=== PATIENT | female | born 1970 | race Caucasian/White ===

== ENCOUNTER 2018-11-27 00:20 | Emergency (ER) | payer BC ==
[2018-11-27 00:28] VITALS: BP 98/57
[2018-11-27] MEDS ORDERED: MVI, Adult with Vitamin K 10 ML, Folic Acid 1 MG, Thiamine 100 MG in Lactated Ringers 1... IV ONE ×4 (00:44)
[2018-11-27 01:17] LABS: ANION GAP 13.4; CHLORIDE,CL 110 mmol/L (101-111); SODIUM,NA 144 mmol/L (135-145)
[2018-11-27 01:18] LABS: ACETAMINOPHEN < 10 ug/mL
[2018-11-27] MEDS ORDERED: Sodium Chloride 0.9% 1,000 ML IV SCH (02:15)
--- NOTE | 2018-11-27 03:04 | EDM.PDOC ---
ED HPI GENERAL MEDICAL PROBLEM - General Chief Complaint: Behavioral/Psych Stated Complaint: AMBULANCE Time Seen by Provider: 11/27/18 00:33 Source of Information: Reports: Patient, EMS, Family, RN History Limitations: Reports: Altered Mental Status, Intoxication - History of Present Illness INITIAL COMMENTS - FREE TEXT/NARRATIVE: ED via EMS with report of OD on ETOH and clonazepam , daughter reported 8 1 mg tablets. On arrival patient reports only 6 1/2 tablets. Spouse estimates 12 beers tonight, usual 12 per spouse patient reports 6-7 daily. No withdrawal hx. Patient stated to daughter and EMS she wanted to . Now stating she was just mad. Daughter reports when drinking makes frequent comments of wanting to . Patient lethargic on arrival arouse to voice speech slurred. No reports of injury. No prior suicide attempts. Daughter reports recent OD of friend - Related Data Allergies Allergy/AdvReac Type Severity Reaction Status Date / Time No Known Allergies Allergy Verified 11/27/18 00:25 Home Meds: Home Meds ClonazePAM [KlonoPIN] 0.5 mg PO BID 08/17/14 [History] DULoxetine [Cymbalta] 20 mg PO DAILY 08/17/14 [History] Glucosamine/D3/Boswellia Radha [Osteo Bi-Flex Caplet] 1 each PO DAILY 08/17/14 [ History] Social & Family History - Family History Family Medical History: Noncontributory - Tobacco Use Smoking Status *Q: Unknown Ever Smoked - Alcohol Use Date of Last Drink: 11/27/18 ED ROS GENERAL - Review of Systems Review Of Systems: ROS reveals no pertinent complaints other than HPI. - Physical Exam Exam: See Below Exam Limited By: No Limitations General Appearance: Lethargic Eye Exam: Bilateral Eye: EOMI, PERRL (5mm) Ears: Normal External Exam, Hearing Grossly Normal Nose: Normal Inspection Throat/Mouth: Normal Inspection Head Exam: Atraumatic, Normocephalic Neck: Normal Inspection, Full Range of Motion Respiratory/Chest: No Respiratory Distress, Decreased Breath Sounds, Other (On oxygen on arrival. ) Cardiovascular: Normal Peripheral Pulses, Regular Rate, Rhythm GI/Abdominal: Normal Bowel Sounds, Soft (round), Non-Tender. No: Tender Extremities: Normal Inspection Psychiatric: Flat Affect Skin Exam: Warm, Dry, Intact, Normal Color EKG INTERPRETATION Rhythm: NSR Course - Vital Signs Last Recorded V/S: Last Vital Signs Temp 98.6 F 11/27/18 00:26 Pulse 87 11/27/18 00:26 Resp 28 H 11/27/18 00:26 BP 98/57 L 11/27/18 00:26 Pulse Ox 91 L 11/27/18 00:26 - Orders/Labs/Meds Orders: Active Orders 24 hr Category Date Time Status EKG Documentation Completion [RC] URGENT Care 11/27/18 00:32 Active Sodium Chloride 0.9% [Normal Saline] 1,000 ml Med 11/27/18 02:15 Active IV ASDIRECTED Medication Orders Sodium Chloride (Normal Saline) 1,000 mls @ 250 mls/hr IV ASDIRECTED ELIZ Last Admin: 11/27/18 02:12 Dose: 250 mls/hr Labs: Laboratory Tests 11/27/18 11/27/18 11/27/18 Range/Units 00:50 00:50 01:28 WBC 11.1 H (5.0-10.0) 10^3/uL RBC 4.29 (4.2-5.4) 10^6/uL Hgb 13.7 D (12.0-16.0) g/dL Hct 40.7 (37.0-47.0) % MCV 94.9 (80-100) fL MCH 31.9 (27.0-34.0) pg MCHC 33.7 (33.0-35.0) g/dL Plt Count 240 (150-450) 10^3/uL Neut % (Auto) 64.2 (42.2-75.2) % Lymph % (Auto) 26.3 (20.5-50.1) % [place] % (Auto) 7.9 (2-8) % Eos % (Auto) 1.2 (1.0-3.0) % Baso % (Auto) 0.4 (0.0-1.0) % Sodium 144 (135-145) mmol/L Potassium 3.4 L (3.6-5.0) mmol/L Chloride 110 (101-111) mmol/L Carbon Dioxide 24.0 (21.0-31.0) mmol/L Anion Gap 13.4 BUN 12 (7-18) mg/dL Creatinine 0.6 (0.6-1.3) mg/dL Est Cr Clr Drug Dosing 88.72 mL/min Estimated GFR (MDRD) > 60 BUN/Creatinine Ratio 20.00 Glucose 96 (74-105) mg/dL Calcium 8.3 L (8.4-10.2) mg/dl Total Bilirubin 0.4 (0.2-1.0) mg/dL AST 21 (10-42) IU/L ALT 13 (10-60) IU/L Alkaline Phosphatase 79 (42-121) IU/L Total Protein 6.5 L (6.7-8.2) g/dl Albumin 3.9 (3.2-5.5) g/dl Globulin 2.6 Albumin/Globulin Ratio 1.50 Amylase 57 (28-100) U/L Lipase 38 (22-51) U/L Urine Color Yellow (YELLOW) Urine Appearance Clear (CLEAR) Urine pH 6.0 (5.0-9.0) Ur Specific [place] <= 1.005 (1.005-1.030) Urine Protein Negative (NEGATIVE) Urine Glucose (UA) Negative (NEGATIVE) Urine Ketones Negative (NEGATIVE) Urine Occult Blood Trace-intact H (NEGATIVE) Urine Nitrite Negative (NEGATIVE) Urine Bilirubin Negative (NEGATIVE) Urine Urobilinogen 0.2 (0.2-1.0) mg/dL Ur Leukocyte Esterase Negative (NEGATIVE) Urine RBC Not seen /HPF Urine WBC Not seen (0-5/HPF) /HPF Ur Epithelial Cells Rare (NOT SEEN) /HPF Urine Bacteria Rare (0-FEW/HPF) /HPF Salicylates < 4 mg/dL Urine Opiates Screen (NEGATIVE) Ur Oxycodone Screen (NEGATIVE) Urine Methadone Screen (NEGATIVE) Acetaminophen < 10 ug/mL Ur Barbiturates Screen (NEGATIVE) U Tricyclic Antidepress (NEGATIVE) Ur Phencyclidine Scrn (NEGATIVE) Ur Amphetamine Screen (NEGATIVE) U Methamphetamines Scrn (NEGATIVE) Urine MDMA Screen (NEGATIVE) U Benzodiazepines Scrn (NEGATIVE) Urine Cocaine Screen (NEGATIVE) U Marijuana (THC) Screen (NEGATIVE) Ethyl Alcohol 188 mg/dL 11/27/18 Range/Units 01:28 WBC (5.0-10.0) 10^3/uL RBC (4.2-5.4) 10^6/uL Hgb (12.0-16.0) g/dL Hct (37.0-47.0) % MCV (80-100) fL MCH (27.0-34.0) pg MCHC (33.0-35.0) g/dL Plt Count (150-450) 10^3/uL Neut % (Auto) (42.2-75.2) % Lymph % (Auto) (20.5-50.1) % [place] % (Auto) (2-8) % Eos % (Auto) (1.0-3.0) % Baso % (Auto) (0.0-1.0) % Sodium (135-145) mmol/L Potassium (3.6-5.0) mmol/L Chloride (101-111) mmol/L Carbon Dioxide (21.0-31.0) mmol/L Anion Gap BUN (7-18) mg/dL Creatinine (0.6-1.3) mg/dL Est Cr Clr Drug Dosing mL/min Estimated GFR (MDRD) BUN/Creatinine Ratio Glucose (74-105) mg/dL Calcium (8.4-10.2) mg/dl Total Bilirubin (0.2-1.0) mg/dL AST (10-42) IU/L ALT (10-60) IU/L Alkaline Phosphatase (42-121) IU/L Total Protein (6.7-8.2) g/dl Albumin (3.2-5.5) g/dl Globulin Albumin/Globulin Ratio Amylase (28-100) U/L Lipase (22-51) U/L Urine Color (YELLOW) Urine Appearance (CLEAR) Urine pH (5.0-9.0) Ur Specific [place] (1.005-1.030) Urine Protein (NEGATIVE) Urine Glucose (UA) (NEGATIVE) Urine Ketones (NEGATIVE) Urine Occult Blood (NEGATIVE) Urine Nitrite (NEGATIVE) Urine Bilirubin (NEGATIVE) Urine Urobilinogen (0.2-1.0) mg/dL Ur Leukocyte Esterase (NEGATIVE) Urine RBC /HPF Urine WBC (0-5/HPF) /HPF Ur Epithelial Cells (NOT SEEN) /HPF Urine Bacteria (0-FEW/HPF) /HPF Salicylates mg/dL Urine Opiates Screen Negative (NEGATIVE) Ur Oxycodone Screen Negative (NEGATIVE) Urine Methadone Screen Negative (NEGATIVE) Acetaminophen ug/mL Ur Barbiturates Screen Negative (NEGATIVE) U Tricyclic Antidepress Negative (NEGATIVE) Ur Phencyclidine Scrn Negative (NEGATIVE) Ur Amphetamine Screen Negative (NEGATIVE) U Methamphetamines Scrn Negative (NEGATIVE) Urine MDMA Screen Negative (NEGATIVE) U Benzodiazepines Scrn Negative (NEGATIVE) Urine Cocaine Screen Negative (NEGATIVE) U Marijuana (THC) Screen Negative (NEGATIVE) Ethyl Alcohol mg/dL Meds: Medications Generic Name Dose Route Start Last Admin Trade Name Freq PRN Reason Stop Dose Admin Sodium Chloride 1,000 mls @ 250 mls/hr 11/27/18 02:15 11/27/18 02:12 Normal Saline IV 250 mls/hr ASDIRECTED ELIZ Administration Discontinued Medications Generic Name Dose Route Start Last Admin Trade Name Freq PRN Reason Stop Dose Admin Multivitamins/Minerals 10 ml/ 1,011.2 mls @ 999 mls/hr 11/27/18 00:44 00:53 Folic Acid 1 mg/ Thiamine HCl IV 11/27/18 01:44 999 mls/hr 100 mg/ Lactated Ringer's ONETIME ONE Administration - Re-Assessments/Exams Free Text/Narrative Re-Assessment/Exam: 11/27/18 03:18 Lethargic at times requires tactile stimulation BP 100's , Decrease 80's sleeping and left side. More alert at time of transfer, VS improved, room air with sats mid 90's. Up to BSC x [address] Tyler, aceepting patient in transfer. Tx via [facility]. Departure - Departure Time of Disposition: 03:21 Disposition: DC/Tfer to Acute Hospital 02 Condition: Good Clinical Impression: Alcohol abuse, Drug abuse Suicide gesture Qualifiers: Encounter type: initial encounter Qualified Code(s): X83.8XXA - Intentional self-harm by other specified means, initial encounter - Discharge Information *PRESCRIPTION DRUG MONITORING PROGRAM REVIEWED*: Yes *COPY OF PRESCRIPTION DRUG MONITORING REPORT IN PATIENT ANDREW: No Forms: ED Department Discharge - My Orders Last 24 Hours: My Active Orders 11/27/18 00:32 EKG Documentation Completion [RC] URGENT 11/27/18 02:15 Sodium Chloride 0.9% [Normal Saline] 1,000 ml IV ASDIRECTED - Assessment/Plan Last 24 Hours: My Active Orders 11/27/18 00:32 EKG Documentation Completion [RC] URGENT 11/27/18 02:15 Sodium Chloride 0.9% [Normal Saline] 1,000 ml IV ASDIRECTED
== END 2018-11-27 03:30 ==
LOC: DL.ED 00:20
DX: T42.4X2A Poisoning by benzodiazepines, intentional self-harm, initial encounter (principal); F10.10 Alcohol abuse, uncomplicated; F19.10 Other psychoactive substance abuse, uncomplicated; R53.83 Other fatigue; Z79.899 Other long term (current) drug therapy; Y90.6 Blood alcohol level of 120-199 mg/100 ml
CPT/HCPCS: 36415; 80053; 80305; 80320; 80329; 81001; 82150; 83690; 85025; 93005; 94762; 96365; 96367; 99284; J3411; J7030; J7120; G0480; J3490

== ENCOUNTER 2021-02-10 03:29 | Emergency (ER) | payer BC ==
[2021-02-10] MEDS ORDERED: Sodium Chloride 0.9% 10 ML Syringe FLUSH PRN (03:37)
[2021-02-10] MEDS ORDERED: Sodium Chloride 0.9% 1,000 ML IV ONE ×2 (04:13→08:05)
[2021-02-10] MEDS ORDERED: Ondansetron 4 MG/2 ML SDV IVPUSH ONE (04:13)
--- NOTE | 2021-02-10 04:13 | EDM.PDOC ---
<Magan Guthrie Hans - Last Filed: 02/10/21 06:02> ED HPI GENERAL MEDICAL PROBLEM - General Chief Complaint: Chest Pain Stated Complaint: PAIN IN NECK GOING TO LOWER BACK, MIGRAINE Time Seen by Provider: 02/10/21 04:08 Source of Information: Reports: Patient History Limitations: Reports: No Limitations - History of Present Illness INITIAL COMMENTS - FREE TEXT/NARRATIVE: 50 y/o F c/o GARCIA, neck pn, cough, migraine, fever, weakness, cp, nausea, muscle aches since Thursday. Pt has been taking tylenol and meloxicam for fever and pain control. Last tylenol at 7 pm and meloxicam at 230 this morning. The cp is sharp R lower chest worse with coughing. Pt is a heavy smoker and has COPD for which she uses an inhaler. Denies db, abd pn, back pn, diff voiding, vomiting, diarrhea. Right Headache Pain Score (Numeric/FACES): 9 - Related Data Allergies Allergy/AdvReac Type Severity Reaction Status Date / Time codeine AdvReac Nausea and Verified 02/10/21 03:55 Vomiting Home Meds: Home Meds ClonazePAM [KlonoPIN] 0.5 mg PO BID PRN 08/17/14 [History] DULoxetine [Cymbalta] 60 mg PO DAILY 08/17/14 [History] Glucosamine/D3/Boswellia Radha [Osteo Bi-Flex Caplet] 2 each PO DAILY 08/17/14 [History] Magnesium 02/10/21 [History] Meloxicam 15 mg PO DAILY PRN 02/10/21 [History] Potassium Gluconate [Potassium] 99 mg PO 02/10/21 [History] Social & Family History - Family History Family Medical History: No Pertinent Family History - Tobacco Use Tobacco Use Status *Q: Current Every Day Tobacco User Years of Tobacco use: 35 Packs/Tins Daily: 1 - Recreational Drug Use Recreational Drug Use: No ED ROS GENERAL - Review of Systems Review Of Systems: Comprehensive ROS is negative, except as noted in HPI. ED EXAM, GENERAL - Physical Exam Exam: See Below Exam Limited By: No Limitations General Appearance: Alert, Mild Distress Ears: Normal External Exam, Normal Canal, Hearing Grossly Normal, Normal TMs Nose: Normal Inspection, Normal Mucosa Throat/Mouth: Normal Lips, Normal Teeth, No Airway Compromise, Other (tongue dry and furrowed.) Head: Atraumatic, Normocephalic Neck: Normal Inspection, Supple, Non-Tender, Full Range of Motion Respiratory/Chest: No Respiratory Distress, No Accessory Muscle Use, Chest Non- Tender, Other (dimished lowers) Cardiovascular: Normal Peripheral Pulses, Tachycardia GI/Abdominal: Soft, Non-Tender (Female) Exam: Deferred Back Exam: Normal Inspection, Full Range of Motion Extremities: Normal Inspection, Normal Range of Motion, Non-Tender, Normal Capillary Refill, No Pedal Edema Neurological: Alert, Oriented, CN II-XII Intact, Normal Cognition, Normal Gait, Normal Reflexes, No Motor/Sensory Deficits Psychiatric: Normal Affect, Normal Mood Skin Exam: Dry, Intact, Other (hot to the touch) #1 Interpretation EKG Date: 02/10/21 Time: 03:41 Rhythm: Other (sinus) [place]: Normal P-Wave: Present QRS: Normal ST-T: Depressed QT: Normal EKG Interpretation Comments: sinus tach, rate 115, normal axis, diffuse T wave abnormalities inferior lateral leads, no st elevation. Course - Vital Signs Text/Narrative:: Given the pts presentation, tachycardia, tachypnea, hypoxia with exertion I ordered a CT PE protocol. The pt has marketly increased liver enzymes and denies alcohol use or abuse. Knowing this I determined it appropriate to CT her abd pelvis to look for a discernable cause to her liver enzymes. Departure - Departure Disposition: DC/Tfer to [facility] 02 Clinical Impression: Hypoxia RML pneumonia Qualifiers: Pneumonia type: due to unspecified organism Qualified Code(s): J18.9 - Pneumonia, unspecified organism Sepsis Qualifiers: Sepsis type: sepsis due to unspecified organism Sepsis acute organ dysfunction status: without acute organ dysfunction Qualified Code(s): A41.9 - Sepsis, unspecified organism COPD (chronic obstructive pulmonary disease) Qualifiers: COPD type: unspecified COPD Qualified Code(s): J44.9 - Chronic obstructive pulmonary disease, unspecified Forms: ED Department Discharge, Interfacility Transfer [facility] Sepsis Event Note (ED) - Evaluation Sepsis Screening Result: Possible Sepsis Risk <Marilee Padilla - Last Filed: 02/10/21 08:38> Past Medical History Respiratory History: Reports: COPD Psychiatric History: Reports: Anxiety, Depression - Past Surgical History HEENT Surgical History: Reports: Tonsillectomy Female Surgical History: Reports: Section, Hysterectomy, Oophorectomy Course - Vital Signs Last Recorded V/S: Last Vital Signs Temp 100.3 F 02/10/21 05:25 Pulse 102 H 02/10/21 06:30 Resp 22 H 02/10/21 06:30 BP 102/62 02/10/21 06:30 Pulse Ox 91 L 02/10/21 06:30 - Orders/Labs/Meds Orders: Active Orders 24 hr Category Date Time Status Peripheral IV Care [RC] . DIRECTED Care 02/10/21 03:38 Active CULTURE BLOOD [BC] Stat Lab 02/10/21 03:55 Received CULTURE BLOOD [BC] Stat Lab 02/10/21 04:25 Received Sodium Chloride 0.9% [Normal Saline] 1,000 ml Med 02/10/21 08:05 Ordered IV .BOLUS Sodium Chloride 0.9% [Normal Saline] 500 ml Med 02/10/21 05:00 Active IV .BOLUS Sodium Chloride 0.9% [Saline Flush] Med 02/10/21 03:37 Active 10 ml FLUSH ASDIRECTED PRN Blood Culture x2 Reflex Set [OM.PC] Stat Oth 02/10/21 03:38 Ordered Peripheral IV Insertion Adult [OM.PC] Routine Oth 02/10/21 03:38 Ordered Medication Orders Sodium Chloride (Normal Saline) 500 mls @ 999 mls/hr IV .BOLUS ELIZ Last Admin: 02/10/21 05:02 Dose: 999 mls/hr Documented by: LEATHA Sodium Chloride (Normal Saline) 1,000 mls @ 150 mls/hr IV .BOLUS ONE Stop: 02/10/21 14:44 Last Admin: 02/10/21 08:12 Dose: 150 mls/hr Documented by: Sodium Chloride (Sodium Chloride 0.9% 10 Ml Syringe) 10 ml FLUSH ASDIRECTED PRN PRN Reason: Keep Vein Open Last Admin: 02/10/21 04:26 Dose: 10 ml Documented by: LEATHA Labs: Laboratory Tests 02/10/21 02/10/21 02/10/21 Range/Units 03:55 03:55 03:55 WBC 20.3 H (5.0-10.0) 10^3/uL RBC 4.49 (4.2-5.4) 10^6/uL Hgb 14.1 (12.0-16.0) g/dL Hct 41.5 (37.0-47.0) % MCV 92.4 (80-100) fL MCH 31.4 (27.0-34.0) pg MCHC 34.0 (33.0-35.0) g/dL Plt Count 173 (150-450) 10^3/uL Neut % (Auto) 83.0 H (42.2-75.2) % Lymph % (Auto) 6.5 L (20.5-50.1) % [place] % (Auto) 10.4 H (2-8) % Eos % (Auto) 0.0 L (1.0-3.0) % Baso % (Auto) 0.1 (0.0-1.0) % Sodium 133 L (136-145) mmol/L Potassium 3.7 (3.5-5.1) mmol/L Chloride 101 (98-107) mmol/L Carbon Dioxide 23 (21-32) mmol/L Anion Gap 12.7 (7-13) mEq/L BUN 15 (7-18) mg/dL Creatinine 0.76 (0.55-1.02) mg/dL Est Cr Clr Drug Dosing 71.12 mL/min Estimated GFR (MDRD) > 60 BUN/Creatinine Ratio 19.7 (No establ ref range) Glucose 128 H (70-99) mg/dL Lactic Acid 0.6 (0.4-2.0) mmol/L Calcium 8.5 (8.5-10.1) mg/dL Magnesium 1.9 (1.8-2.4) mg/dL Total Bilirubin 0.6 (0.2-1.0) mg/dL AST 254 H (15-37) U/L ALT 243 H (14-59) U/L Alkaline Phosphatase 119 H (46-116) U/L Troponin I High Sens < 4 (<=51) pg/mL C-Reactive Protein 18.2 H (0.0-0.9) mg/dL Total Protein 7.0 (6.4-8.2) g/dL Albumin 3.3 L (3.4-5.0) g/dL Globulin 3.7 Albumin/Globulin Ratio 0.89 Amylase 40 (25-115) U/L Lipase 204 (73-393) U/L TSH, Ultra Sensitive 1.28 (0.36-3.74) uIU/mL Urine Color (YELLOW) Urine Appearance (CLEAR) Urine pH (5.0-9.0) Ur Specific [place] (1.005-1.030) Urine Protein (NEGATIVE) Urine Glucose (UA) (NEGATIVE) Urine Ketones (NEGATIVE) Urine Occult Blood (NEGATIVE) Urine Nitrite (NEGATIVE) Urine Bilirubin (NEGATIVE) Urine Urobilinogen (0.2-1.0) mg/dL Ur Leukocyte Esterase (NEGATIVE) Urine RBC (0-5) /HPF Urine WBC (0-5/HPF) /HPF Ur Epithelial Cells (NOT SEEN) /HPF Urine Bacteria (0-FEW/HPF) /HPF Fine Granular Casts (NOT SEEN) /LPF Urine HCG, Qual Urine Opiates Screen (NEGATIVE) Ur Oxycodone Screen (NEGATIVE) Urine Methadone Screen (NEGATIVE) Ur Barbiturates Screen (NEGATIVE) U Tricyclic Antidepress (NEGATIVE) Ur Phencyclidine Scrn (NEGATIVE) Ur Amphetamine Screen (NEGATIVE) U Methamphetamines Scrn (NEGATIVE) Urine MDMA Screen (NEGATIVE) U Benzodiazepines Scrn (NEGATIVE) Urine Cocaine Screen (NEGATIVE) U Marijuana (THC) Screen (NEGATIVE) Ethyl Alcohol < 3 (0) mg/dL Influenza Type A RNA (NEGATIVE) Influenza Type B RNA (NEGATIVE) SARS-CoV-2 RNA (ELLA) (NEGATIVE) 02/10/21 02/10/21 02/10/21 Range/Units 03:59 04:35 04:35 WBC (5.0-10.0) 10^3/uL RBC (4.2-5.4) 10^6/uL Hgb (12.0-16.0) g/dL Hct (37.0-47.0) % MCV (80-100) fL MCH (27.0-34.0) pg MCHC (33.0-35.0) g/dL Plt Count (150-450) 10^3/uL Neut % (Auto) (42.2-75.2) % Lymph % (Auto) (20.5-50.1) % [place] % (Auto) (2-8) % Eos % (Auto) (1.0-3.0) % Baso % (Auto) (0.0-1.0) % Sodium (136-145) mmol/L Potassium (3.5-5.1) mmol/L Chloride (98-107) mmol/L Carbon Dioxide (21-32) mmol/L Anion Gap (7-13) mEq/L BUN (7-18) mg/dL Creatinine (0.55-1.02) mg/dL Est Cr Clr Drug Dosing mL/min Estimated GFR (MDRD) BUN/Creatinine Ratio (No establ ref range) Glucose (70-99) mg/dL Lactic Acid (0.4-2.0) mmol/L Calcium (8.5-10.1) mg/dL Magnesium (1.8-2.4) mg/dL Total Bilirubin (0.2-1.0) mg/dL AST (15-37) U/L ALT (14-59) U/L Alkaline Phosphatase (46-116) U/L Troponin I High Sens (<=51) pg/mL C-Reactive Protein (0.0-0.9) mg/dL Total Protein (6.4-8.2) g/dL Albumin (3.4-5.0) g/dL Globulin Albumin/Globulin Ratio Amylase (25-115) U/L Lipase (73-393) U/L TSH, Ultra Sensitive (0.36-3.74) uIU/mL Urine Color Yellow (YELLOW) Urine Appearance Slightly cloudy (CLEAR) Urine pH 7.0 (5.0-9.0) Ur Specific [place] 1.025 (1.005-1.030) Urine Protein 100 H (NEGATIVE) Urine Glucose (UA) Negative (NEGATIVE) Urine Ketones 40 H (NEGATIVE) Urine Occult Blood Trace-intact H (NEGATIVE) Urine Nitrite Negative (NEGATIVE) Urine Bilirubin Negative (NEGATIVE) Urine Urobilinogen 0.2 (0.2-1.0) mg/dL Ur Leukocyte Esterase Negative (NEGATIVE) Urine RBC 0-5 (0-5) /HPF Urine WBC 5-10 H (0-5/HPF) /HPF Ur Epithelial Cells Many H (NOT SEEN) /HPF Urine Bacteria Many H (0-FEW/HPF) /HPF Fine Granular Casts Few H (NOT SEEN) /LPF Urine HCG, Qual Negative Urine Opiates Screen (NEGATIVE) Ur Oxycodone Screen (NEGATIVE) Urine Methadone Screen (NEGATIVE) Ur Barbiturates Screen (NEGATIVE) U Tricyclic Antidepress (NEGATIVE) Ur Phencyclidine Scrn (NEGATIVE) Ur Amphetamine Screen (NEGATIVE) U Methamphetamines Scrn (NEGATIVE) Urine MDMA Screen (NEGATIVE) U Benzodiazepines Scrn (NEGATIVE) Urine Cocaine Screen (NEGATIVE) U Marijuana (THC) Screen (NEGATIVE) Ethyl Alcohol (0) mg/dL Influenza Type A RNA Negative (NEGATIVE) Influenza Type B RNA Negative (NEGATIVE) SARS-CoV-2 RNA (ELLA) Negative (NEGATIVE) 02/10/21 Range/Units 04:35 WBC (5.0-10.0) 10^3/uL RBC (4.2-5.4) 10^6/uL Hgb (12.0-16.0) g/dL Hct (37.0-47.0) % MCV (80-100) fL MCH (27.0-34.0) pg MCHC (33.0-35.0) g/dL Plt Count (150-450) 10^3/uL Neut % (Auto) (42.2-75.2) % Lymph % (Auto) (20.5-50.1) % [place] % (Auto) (2-8) % Eos % (Auto) (1.0-3.0) % Baso % (Auto) (0.0-1.0) % Sodium (136-145) mmol/L Potassium (3.5-5.1) mmol/L Chloride (98-107) mmol/L Carbon Dioxide (21-32) mmol/L Anion Gap (7-13) mEq/L BUN (7-18) mg/dL Creatinine (0.55-1.02) mg/dL Est Cr Clr Drug Dosing mL/min Estimated GFR (MDRD) BUN/Creatinine Ratio (No establ ref range) Glucose (70-99) mg/dL Lactic Acid (0.4-2.0) mmol/L Calcium (8.5-10.1) mg/dL Magnesium (1.8-2.4) mg/dL Total Bilirubin (0.2-1.0) mg/dL AST (15-37) U/L ALT (14-59) U/L Alkaline Phosphatase (46-116) U/L Troponin I High Sens (<=51) pg/mL C-Reactive Protein (0.0-0.9) mg/dL Total Protein (6.4-8.2) g/dL Albumin (3.4-5.0) g/dL Globulin Albumin/Globulin Ratio Amylase (25-115) U/L Lipase (73-393) U/L TSH, Ultra Sensitive (0.36-3.74) uIU/mL Urine Color (YELLOW) Urine Appearance (CLEAR) Urine pH (5.0-9.0) Ur Specific [place] (1.005-1.030) Urine Protein (NEGATIVE) Urine Glucose (UA) (NEGATIVE) Urine Ketones (NEGATIVE) Urine Occult Blood (NEGATIVE) Urine Nitrite (NEGATIVE) Urine Bilirubin (NEGATIVE) Urine Urobilinogen (0.2-1.0) mg/dL Ur Leukocyte Esterase (NEGATIVE) Urine RBC (0-5) /HPF Urine WBC (0-5/HPF) /HPF Ur Epithelial Cells (NOT SEEN) /HPF Urine Bacteria (0-FEW/HPF) /HPF Fine Granular Casts (NOT SEEN) /LPF Urine HCG, Qual Urine Opiates Screen Negative (NEGATIVE) Ur Oxycodone Screen Negative (NEGATIVE) Urine Methadone Screen Negative (NEGATIVE) Ur Barbiturates Screen Negative (NEGATIVE) U Tricyclic Antidepress Positive H (NEGATIVE) Ur Phencyclidine Scrn Negative (NEGATIVE) Ur Amphetamine Screen Negative (NEGATIVE) U Methamphetamines Scrn Negative (NEGATIVE) Urine MDMA Screen Negative (NEGATIVE) U Benzodiazepines Scrn Negative (NEGATIVE) Urine Cocaine Screen Negative (NEGATIVE) U Marijuana (THC) Screen Negative (NEGATIVE) Ethyl Alcohol (0) mg/dL Influenza Type A RNA (NEGATIVE) Influenza Type B RNA (NEGATIVE) SARS-CoV-2 RNA (ELLA) (NEGATIVE) Meds: Medications Generic Name Dose Route Start Last Admin Trade Name Freq PRN Reason Stop Dose Admin Sodium Chloride 500 mls @ 999 mls/hr 02/10/21 05:00 02/10/21 05:02 Normal Saline IV 999 mls/hr .BOLUS ELIZ Administration Sodium Chloride 1,000 mls @ 150 mls/hr 02/10/21 08:05 02/10/21 08:12 Normal Saline IV 02/10/21 14:44 150 mls/hr .BOLUS ONE Administration Sodium Chloride 10 ml 02/10/21 03:37 02/10/21 04:26 Sodium Chloride 0.9% 10 Ml Syringe FLUSH 10 ml ASDIRECTED PRN Administration Keep Vein Open Discontinued Medications Generic Name Dose Route Start Last Admin Trade Name Freq PRN Reason Stop Dose Admin Acetaminophen 1,000 mg 02/10/21 04:15 02/10/21 04:29 Acetaminophen 500 Mg Tab PO 02/10/21 04:16 1,000 mg ONETIME ONE Administration Hydromorphone HCl 0.5 mg 02/10/21 05:30 02/10/21 05:36 Hydromorphone 0.5 Mg/0.5 Ml Syringe IVPUSH 02/10/21 05:31 0.5 mg ONETIME ONE Administration Sodium Chloride 1,000 mls @ 999 mls/hr 02/10/21 04:13 02/10/21 04:32 Normal Saline IV 02/10/21 05:13 999 mls/hr .BOLUS ONE Administration Levofloxacin/Dextrose 750 mg/ 150 mls @ 100 mls/hr 02/10/21 06:01 02/10/21 07:58 Premix IV 02/10/21 07:30 Infused ONETIME ONE Infusion Iopamidol 100 ml 02/10/21 04:55 Iopamidol 755 Mg/Ml 100 Ml Bottle IVPUSH 02/10/21 04:56 ONETIME ONE Ondansetron HCl 4 mg 02/10/21 04:13 02/10/21 04:27 Ondansetron 4 Mg/2 Ml Sdv IVPUSH 02/10/21 04:14 4 mg ONETIME ONE Administration - Re-Assessments/Exams Free Text/Narrative Re-Assessment/Exam: 02/10/21 08:11 No bed available at [facility], [facility] Dr Leighumenathan accepting patient. RML, hypoxia, COPD Sepsis Departure - Departure Time of Disposition: 08:07 Reason for Transfer *Q: Other Condition: Good Sepsis Event Note (ED) - Focused Exam Vital Signs: Vital Signs Temp Pulse Resp BP BP Pulse Ox 02/10/21 06:30 102 H 22 H 102/62 91 L 02/10/21 06:18 106 H 24 H 103/65 90 L 02/10/21 06:14 86 L 02/10/21 06:05 108 H 24 H 98/59 L 90 L 02/10/21 05:25 100.3 F 108 H 24 H 109/65 92 L 02/10/21 04:45 104 H 90 L 02/10/21 04:36 114 H 26 H 112/70 88 L 02/10/21 03:56 101.7 F H 116 H 26 H 112/68 92 L - My Orders Last 24 Hours: My Active Orders 02/10/21 08:05 Sodium Chloride 0.9% [Normal Saline] 1,000 ml IV .BOLUS - Assessment/Plan Last 24 Hours: My Active Orders 02/10/21 08:05 Sodium Chloride 0.9% [Normal Saline] 1,000 ml IV .BOLUS
[2021-02-10] MEDS ORDERED: Acetaminophen 500 MG Tab PO ONE (04:15)
[2021-02-10 04:29] LABS: ANION GAP 12.7 mEq/L (7-13); CHLORIDE,CL 101 mmol/L (98-107); SODIUM,NA 133 mmol/L (136-145)
[2021-02-10 04:52] LABS: CORONAVIRUS COVID-19 NAA NEGATIVE (NEGATIVE)
[2021-02-10] MEDS ORDERED: Iopamidol 755 Mg/ML 100 ML Bottle IVPUSH ONE (04:55)
[2021-02-10 04:58] LABS: AMPHETAMINES,URINE NEGATIVE (NEGATIVE); BARBITURATES,URINE NEGATIVE (NEGATIVE); BENZODIAZEPINE,URINE NEGATIVE (NEGATIVE); MDMA (ECSTASY), URINE NEGATIVE (NEGATIVE); METHADONE,URINE NEGATIVE (NEGATIVE); METHAMPHETAMINES,URINE NEGATIVE (NEGATIVE); OPIATES,URINE NEGATIVE (NEGATIVE); OXYCODONE,URINE NEGATIVE (NEGATIVE); PHENCYCLIDINE,URINE NEGATIVE (NEGATIVE); TCA,URINE POSITIVE (NEGATIVE)
[2021-02-10] MEDS ORDERED: Sodium Chloride 0.9% 500 ML IV SCH (05:00)
[2021-02-10] MEDS ORDERED: HYDROmorphone 0.5 MG/0.5 ML Syringe IVPUSH ONE (05:30)
[2021-02-10] MEDS ORDERED: Levofloxacin/Dextrose 5%-Water 750 MG in Premix Bag 1 BAG IV ONE (06:01)
[2021-02-10 06:47] VITALS: BP 102/62; PULSE 102
--- NOTE | 2021-02-10 07:31 | CT ---
PROCEDURE INFORMATION: Exam: CT Chest With Contrast; Diagnostic Exam date and time: 02/10/2021 5:47 AM Age: 50 years old Clinical indication: Abdominal pain; Localized; Right upper quadrant (ruq); Other: Chest pain, short of breath, hypoxia; Additional info: Hypoxia, tachycardia, SOB, ruq abd pn/cp, rule out pe TECHNIQUE: Imaging protocol: Diagnostic computed tomography of the chest with contrast. Radiation optimization: All CT scans at this facility use at least one of these dose optimization techniques: automated exposure control; mA and/or kV adjustment per patient size (includes targeted exams where dose is matched to clinical indication); or iterative reconstruction. Contrast material: ISOVUE 370; Contrast volume: 100 ml; Contrast route: INTRAVENOUS (IV); COMPARISON: CT Chest w Cont 12/06/2015 9:47 AM FINDINGS: Lungs: There is dense consolidation of the anteromedial right middle lobe bordered inferiorly by the major fissure. There is air bronchogram formation. Enhancing pulmonary vascular branches course through this area of consolidation. Trace nonspecific airspace disease in the anterior lingular segment of the left upper lobe and lateral basal segment of the left lower lobe. Pleural spaces: Trace right pleural effusion. No pneumothorax. Heart: The heart is not enlarged. No pericardial effusion. Pulmonary arteries: No sign of acute pulmonary embolism. Aorta: No thoracic aortic aneurysm or dissection when allowing for pulsation artifact. Lymph nodes: Slightly prominent right hilar and azygoesophageal recess lymph nodes, likely reactive in nature. Bones/joints: No acute osseous abnormality. Soft tissues: No acute soft tissue abnormality. IMPRESSION: 1. No sign of acute pulmonary embolism. 2. Right middle lobe pneumonia. 3. Trace right parapneumonic effusion. 4. Likely mild reactive hilar and mediastinal lymph nodes. PROCEDURE INFORMATION: Exam: CT Abdomen And Pelvis With Contrast Exam date and time: 02/10/2021 5:47 AM Age: 50 years old Clinical indication: Abdominal pain; Localized; Right upper quadrant (ruq); Other: Chest pain, short of breath, hypoxia; Additional info: Hypoxia, tachycardia, SOB, ruq abd pn/cp, rule out pe TECHNIQUE: Imaging protocol: Computed tomography of the abdomen and pelvis with contrast. Radiation optimization: All CT scans at this facility use at least one of these dose optimization techniques: automated exposure control; mA and/or kV adjustment per patient size (includes targeted exams where dose is matched to clinical indication); or iterative reconstruction. Contrast material: ISOVUE 370; Contrast volume: 100 ml; Contrast route: INTRAVENOUS (IV); COMPARISON: No relevant prior studies available. FINDINGS: Liver: The liver is not enlarged. Small nonspecific subcapsular low-attenuation lesions in segment 4B. Gallbladder and bile ducts: No calcified gallstones, gallbladder wall thickening, or pericholecystic inflammation. No biliary ductal dilation. Pancreas: No pancreatic mass. No peripancreatic inflammation. No pancreatic ductal dilation. Spleen: The spleen is not enlarged. The splenic parenchyma is heterogeneous, likely due to the phase of imaging. Adrenal glands: No adrenal mass. Kidneys and ureters: No hydronephrosis. No nephrolithiasis. There is an indeterminate 1.1 cm low-attenuation lesion in the inferior pole of the right kidney. Stomach and bowel: No bowel obstruction. There are scattered colonic diverticula without diverticulitis. There is fluid in multiple loops of distal small bowel as well as in the proximal colon which could be due to an enteritis in the correct clinical setting. Appendix: The appendix is not visualized. Intraperitoneal space: No ascites or pneumoperitoneum. Vasculature: No abdominal aortic aneurysm. The mesenteric arteries are patent. The mesenteric, portal, and hepatic veins are patent. Lymph nodes: No enlarged lymph nodes. Urinary bladder: No urinary bladder calculus or wall thickening. Reproductive: Unremarkable as visualized. Bones/joints: Multilevel facet arthropathy in the lumbar spine most severe at L5-S1. Soft tissues: No acute soft tissue abnormality. IMPRESSION: 1. No bowel obstruction or diverticulitis. 2. Possibility of an enteritis. 3. Nonspecific low-attenuation lesions in the liver and right kidney. 4. The appendix is not visualized. COMMENTS: Consistent with the [employer]'s Incidental Findings Committee white paper (J Am Danial Radiol 2018): Any incidental renal lesion less than 1 cm or classified as too small to characterize, or any incidental cystic renal lesion characterized as simple-appearing, is likely benign. No follow-up imaging is recommended for these lesions per consensus recommendations based on imaging criteria.
== END 2021-02-10 08:37 ==
LOC: DL.ED 03:29
DX: A41.9 Sepsis, unspecified organism (principal); J18.9 Pneumonia, unspecified organism; R09.02 Hypoxemia; J44.9 Chronic obstructive pulmonary disease, unspecified; R00.0 Tachycardia, unspecified; Z72.0 Tobacco use; Z88.5 Allergy status to narcotic agent; Z20.822 Contact with and (suspected) exposure to COVID-19
CPT/HCPCS: 0240U; 36415; 71260; 74177; 80053; 80305-QW; 80307; 81001; 81025; 82150; 83605; 83690; 83735; 84443; 84484; 85025; 86140; 87040; 93005; 96365; 96366; 96375; 99285-25; A9270-GY; J1170; J1956; J2405; J7030; J7040

== ENCOUNTER 2024-08-28 23:06 | Emergency (ER) | payer BC, OTHER ==
[2024-08-28 23:22] VITALS: BP 133/81; PULSE 86
[2024-08-28 23:42] LABS: BASOPHILS PERCENT AUTO 0.5 % (0.0-1.0); HEMATOCRIT 41.9 % (37.0-47.0); HEMOGLOBIN 14.6 g/dL (12.0-16.0); LYMPHOCYTES PERCENT AUTO 33.3 % (20.5-50.1); MEAN CORPUSCULAR HEMOGLOBIN 32.4 pg (27.0-34.0); MEAN CORPUSCULAR HGB CONC 34.8 g/dL (33.0-35.0); MEAN CORPUSCULAR VOLUME 93.1 fL (80-100); MONOCYTES PERCENT AUTO 8.8 % (2-8); NEUTROPHILS PERCENT AUTO 56.4 % (42.2-75.2); PLATELET COUNT,PLT 267 10^3/uL (150-450); WHITE BLOOD CELL COUNT,WBC 8.6 10^3/uL (5.0-10.0)
[2024-08-29 00:02] LABS: A/G RATIO 1.2; BILIRUBIN TOTAL 0.3 mg/dL (0.2-1.0); BUN/CREATININE RATIO 11.7 (No establ ref range); CALCIUM 8.6 mg/dL (8.5-10.1); CREATININE 0.6 mg/dL (0.55-1.02); PROTEIN TOTAL,TP 7.4 g/dL (6.4-8.2)
[2024-08-29 00:20] LABS: AMPHETAMINES,URINE NEGATIVE (NEGATIVE); BARBITURATES,URINE NEGATIVE (NEGATIVE); BENZODIAZEPINE,URINE NEGATIVE (NEGATIVE); MDMA (ECSTASY), URINE NEGATIVE (NEGATIVE); METHADONE,URINE NEGATIVE (NEGATIVE); METHAMPHETAMINES,URINE NEGATIVE (NEGATIVE); OPIATES,URINE NEGATIVE (NEGATIVE); OXYCODONE,URINE NEGATIVE (NEGATIVE); PHENCYCLIDINE,URINE NEGATIVE (NEGATIVE); TCA,URINE NEGATIVE (NEGATIVE)
== END 2024-08-29 00:28 ==
LOC: DL.ED 23:06
DX: F10.220 Alcohol dependence with intoxication, uncomplicated (principal); J44.9 Chronic obstructive pulmonary disease, unspecified; F17.210 Nicotine dependence, cigarettes, uncomplicated; Z90.710 Acquired absence of both cervix and uterus; Z88.5 Allergy status to narcotic agent; Z79.899 Other long term (current) drug therapy; Y90.8 Blood alcohol level of 240 mg/100 ml or more
CPT/HCPCS: 36415; 80053; 80305-QW; 80307; 85025; 99283; 99284